=== PATIENT | male | born 1950 | race Caucasian/White ===

== ENCOUNTER → 2023-06-27 | Outpatient (CLI) | payer OTHER | END | disposition home or self-care (01) | LOC: RAD 13:06 | PROVIDERS: ATTEND Nurse Practitioner | DX: M19.042 Primary osteoarthritis, left hand (principal); M19.072 Primary osteoarthritis, left ankle and foot; M19.011 Primary osteoarthritis, right shoulder; M19.012 Primary osteoarthritis, left shoulder; M19.071 Primary osteoarthritis, right ankle and foot; Z00.00 Encounter for general adult medical examination without abnormal findings | CPT/HCPCS: 73030-LT; 73030-RT; 73130-LT; 73130-RT; 73630-LT; 73630-RT ==